=== PATIENT | female | born 1935 | race American Indian/Alaskan Native ===

== ENCOUNTER 2023-04-15 18:02 | Emergency (ER) | payer OTHER ==
[~2023-04-15] VITALS: Ht 157.5 cm; Wt 52.6 kg
[2023-04-15 18:02] VITALS: BP 144/47; TEMP 98.4
[~2023-04-15 18:02] MED LIST: NITR100C56 PO
[2023-04-15 18:21] LABS: PLATELET COUNT 189 K/uL (152-353)
[2023-04-15 18:29] LABS: POTASSIUM 4.2 mmol/L (3.6-5.2)
[2023-04-15] MEDS ORDERED: ATOR10TA3 PO (21:47)
[2023-04-15] MEDS ORDERED: ALEN70TA19 PO (21:48)
[2023-04-15] MEDS ORDERED: EUTHYROX25 MCG PO (21:49)
[2023-04-15] MEDS ORDERED: DULO60CA2 PO (21:50)
[2023-04-15] MEDS ORDERED: VITAMIN D325 MCG PO (21:52)
[2023-04-15] MEDS ORDERED: METO50TA63 PO (21:54)
[2023-04-15] MEDS ORDERED: GABA300C2 PO (21:55)
[2023-04-15] MEDS ORDERED: MEMA5TAB PO (21:58)
[2023-04-15] MEDS ORDERED: OXYB5TAB56 PO (21:59)
[2023-04-15] MEDS ORDERED: XARELTO15 MG PO (22:02)
[2023-04-15] MEDS ORDERED: HALO5INJ3 IM (22:06)
== END 2023-04-15 21:30 | disposition other institution (70) ==
LOC: ED 18:02
PROVIDERS: Family Medicine
DX: F29 Unspecified psychosis not due to a substance or known physiological condition (principal); Z02.79 Encounter for issue of other medical certificate
CPT/HCPCS: 36415; 80053; 84484; 85027; 87635; 93005; 99283; U0003